=== PATIENT | female | born 1990 | race Caucasian/White ===

== ENCOUNTER 2024-05-08 18:27 | Inpatient (IN) | payer OTHER, SELFPAY ==
[2024-05-08] VITALS (30 sets, daily range): BP systolic 122–173; BP diastolic 63–93; PULSE 83–107; O2SAT 96–98; BMI 38.2
--- NOTE | 2024-05-08 19:10 | XR_ITS ---
Examination: Complete OB ultrasound greater than 14 weeks Date and time of exam: May 08, 2024 1934 hrs. Indications: Leaking amniotic fluid since last night, dilated cervix 4 cm Findings: Viable intrauterine single fetus with single amniotic sac presentation cephalic Cardiac motion 166 BPM Placenta posterior grade 2 Umbilical cord insertion seen Amniotic fluid index 3.4 cm Cervix 3.4 cm Ovaries obscured by bowel gas. Composite estimated gestational age based on BPD, head circumference, abdominal circumference, femur length is 37 weeks 5 days Estimated weight 3364 g. Survey of intracranial anatomy, spinal anatomy, abdominal anatomy, four-chamber heart performed with no abnormalities identified. Impression: Viable intrauterine gestation cephalic presentation Amniotic fluid index 3.4 cm.
[2024-05-08 19:44] LABS: ROM Kit Lot # 57805053; ROM Swab Mixed By: ANGUM; Swb Mxed in Solvent 1 min? Yes
[2024-05-08 19:45] LABS: Rupture of Fetal Membranes Positive (Negative)
[2024-05-08 19:51] LABS: Collection Type, Urine Clean Catch
[2024-05-08 19:55] LABS: Basophils # (Auto) 0.1 Thou/mm3 (0.0-0.2); Basophils % (Auto) 1 % (0-2.5); Eosinophils # (Auto) 0.1 Thou/mm3 (0.0-0.5); Eosinophils % (Auto) 1 % (0-10); Hematocrit 34.6 % (36.0-46.0); Hemoglobin 11.7 g/dL (12.0-16.0); Immature Granulocytes % (Auto) 2 % (0-0); Immature Granulocytes Auto 0.27 Thou/mm3 (0.00-0.00); Lymphocytes # (Auto) 2.5 Thou/mm3 (1.0-4.8); Lymphocytes % (Auto) 18 % (10-50); Mean Corpuscular HGB Conc 33.8 g/dl (31.0-37.0); Mean Corpuscular Volume 86 fL (80-100); Monocytes # (Auto) 1.1 Thou/mm3 (0.0-0.8); Monocytes % (Auto) 8 % (0-12); Neutrophils # (Auto) 9.9 Thou/mm3 (1.8-7.7); Neutrophils % (Auto) 71 % (37-80); Nucleated Red Blood Cell % 0 /100 WBC (0); Platelet Count 282 Thou/mm3 (140-440); RDW Standard Deviation 43.5 fL (36.4-46.3); Red Blood Count 4.03 Miln/mm3 (4.00-5.20); White Blood Count 13.9 Thou/mm3 (3.6-11.0)
[2024-05-08 20:03] LABS: Bilirubin,Urine Negative (Negative); Blood,Urine Negative (Negative); Clarity,Urine Clear (Clear/Hazy); Color,Urine Lt-Yellow (Lt Yel-Yel); Glucose, Urine Negative (Negative); Ketones,Urine Negative (Negative); Leukocyte Esterase,Urine Negative (Negative); Nitrite,Urine Negative (Negative); PH,Urine 6.5 (5.0-7.0); Protein,Urine Negative (Neg - Trace); RBC,Urine 2 /hpf (0-3); Specific Gravity,Urine 1.019 (1.001-1.035); Squamous Epithelial Cell,Urine 2 /hpf (0-5); Urobilinogen,Urine Negative mg/dL (0.0-1.0); WBC,Urine 2 /hpf (0-5)
[2024-05-08 20:55] LABS: INR 0.9 (0.9-1.3); Partial Thromboplastin Time 27.2 Seconds (22.0-36.0); Prothrombin Time 10.2 Seconds (9.0-12.2)
[2024-05-08 20:56] LABS: Fibrinogen 620 mg/dL (175-375)
--- NOTE | 2024-05-08 21:04 | ESHP_ITS ---
Documentation for date of: 05/08/24 OB Labor/Induct. HPI History of Present Illness Chief complaint: 33 y/o 38w 2d presents to L&D in early labor with SROM : 1 Para: 0 Term pregnancies: 0 pregnancies: 0 Living children: 0 History of Abortions: Spontaneous and Elective: 0 History of Vaginal deliveries: 0 History of sections: No History of : No JOSTIN: 05/20/24 Gestational Age (weeks): 38 Gestational Age (days): 2 History of present illness: 33 y/o 38w 2d presents to L&D in early labor with SROM, 3.5/90/-3 vertex maxi 2-5 minutes. Ruptured membranes, amnisure +. Pt's GBS is unknown. Pt is a drop in from [facility], pt was suppose to deliver there, but came here instead. Denies any complications in . EFW 3400g. History of Present Adequate Care: Yes Obstetrical complications: none Labs Maternal Blood Type: O Pos Labs: Negative: HIV, Chlamydia, Gonorrhea, Herpes Type 1 and Herpes Type 2 and Unknown: RPR, Hepatitis B, Rubella Titre, Group Beta Strep and Covid- 19 Review of Systems Review of Systems Systems Reviewed: All systems reviewed, normal except as documented Past Medical History Surgical History SURGICAL: Negative Section Meds Home Medications and Allergies Home Medications ?Medication ?Instructions ?Recorded ?Confirmed ?Type calcium carbonate 500 2 tab PO PRN PRN hearburn 05/08/24 05/08/24 History mg-simethicone 20 mg chewable tablet [id number]-[id number] 1 mg 2 tab PO DAILY 05/08/24 05/08/24 History tablet Allergies Allergy/AdvReac Type Severity Reaction Status Date / Time Sulfa (Sulfonamide Allergy Verified 05/08/24 18:44 Antibiotics) OB Exam Physical Exam Vital signs: Pulse BP 90 131/64 H 05/08/24 20:55 05/08/24 20:55 Constitutional Constitutional: no acute distress Routine HEENT Exam Head: Present normocephalic and atraumatic Eye: Present EOMI, PERRL and normal accommodation ENT: Present mucous membranes moist Routine Neck Exam Neck: Present supple, full ROM and trachea midline Routine Respiratory Exam Respiratory: Absent respiratory distress Routine Cardiovascular Exam Cardiovascular: Present RRR Routine Abdominal Exam Abdominal: Present soft and normoactive bowel sounds Comments: Gravid Uterus EFW 3400g Routine Exam External: Present normal urethra appearance; Absent lesions Detailed Labor and Delivery Exam Dilation (cm): 3.5 Effacement (%): 90 Cervix position: posterior station: -3 Consistency: soft Presentation: Vertex Membranes: ruptured (SROM) Amniotic fluid: clear Baseline heart rate: 130 monitor accelerations: 15x15 monitor decelerations: None [facility] variability: Moderate (11-25) Contraction frequency (min): Maxi Routine Extremities Exam Extremities: Present full ROM Routine Back/Spine/Pelvis Exam Back/Spine: Present full ROM Routine Skin Exam Skin: Present intact, dry and warm Routine Neurological Exam Neurological: Present alert, oriented X3 and CN II-XII intact Routine Psychiatric Exam Psychiatric: Present normal affect and normal thought process OB Results Labs 05/08/24 19:24 05/08/24 19:24 Labs: Short CBC 05/08/24 Range/Units 19:24 WBC 13.9 H (3.6-11.0) Thou/mm3 Hgb 11.7 L (12.0-16.0) g/dL Hct 34.6 L (36.0-46.0) % Plt Count 282 (140-440) Thou/mm3 Urine 05/08/24 Range/Units 19:24 Urine Color Lt-Yellow (Lt Yel-Yel) Urine Clarity Clear (Clear/Hazy) Urine pH 6.5 (5.0-7.0) Ur Specific [place] 1.019 (1.001-1.035) Urine Protein Negative (Neg - Trace) Urine Glucose (UA) Negative (Negative) OB Assessment & Plan Assessment and Plan (1) Normal labor: Status: Acute (2) with 38 completed weeks gestation: Status: Acute (3) GBS screening not performed: Status: Acute (4) Spontaneous rupture of amniotic membranes: Status: Acute Additional Plan Induction method: none Plan: augmentation, anticipate NVD, GBS prophylaxis tx and consult MD maravilla Additional Plan Comment: Routine Admit orders Complete OB and complete panel Consult anesthesia for an epidural
[2024-05-08 21:07] LABS: Alanine Aminotransferase 19 U/L (10-49); Albumin, Serum 4.1 gm/dL (3.5-5.0); Albumin/Globulin Ratio 1.6 (1.2-2.2); Alkaline Phosphatase 191 U/L (46-116); Anion Gap 8 (7-16); Aspartate Amino Transferase 24 U/L (0-34); BUN/Creatinine Ratio 16 Ratio (12-20); Bilirubin,Total 0.4 mg/dL (0.3-1.2); Blood Urea Nitrogen 8 mg/dL (9-23); Calcium 10.2 mg/dL (8.3-10.6); Calcium (Corrected) 10.2 mg/dL (8.5-10.1); Carbon Dioxide 22.6 mMol/L (20.0-31.0); Chloride 105 mMol/L (98-107); Creatinine (Component) 0.5 mg/dL (0.6-1.3); Globulin 2.5 gm/dL (2.3-3.5); Glucose 82 mg/dL (74-106); Osmolality,Calculated 269 (275-295); Potassium 3.8 mMol/L (3.4-5.1); Sodium 136 mMol/L (136-145); Total Protein 6.6 gm/dL (5.7-8.2); eGFR > 60 See Note
[2024-05-08 21:48] LABS: Basophils % (Auto) 0 % (0-2.5); Eosinophils # (Auto) 0.1 Thou/mm3 (0.0-0.5); Eosinophils % (Auto) 1 % (0-10); Hematocrit 35.2 % (36.0-46.0); Immature Granulocytes % (Auto) 2 % (0-0); Immature Granulocytes Auto 0.23 Thou/mm3 (0.00-0.00); Lymphocytes # (Auto) 2.2 Thou/mm3 (1.0-4.8); Lymphocytes % (Auto) 14 % (10-50); Mean Corpuscular HGB Conc 34.1 g/dl (31.0-37.0); Mean Corpuscular Hemoglobin 29.3 pg (25.0-35.0); Mean Corpuscular Volume 86 fL (80-100); Monocytes % (Auto) 7 % (0-12); Neutrophils % (Auto) 77 % (37-80); Nucleated Red Blood Cell % 0 /100 WBC (0); Platelet Count 259 Thou/mm3 (140-440); RDW Standard Deviation 43.9 fL (36.4-46.3); White Blood Count 15.6 Thou/mm3 (3.6-11.0)
[2024-05-08] MEDS: RINGERS LACTATED 1000 ML 1,000 ML 100 ML IV (21:53)
[2024-05-08] MEDS: Ampicillin Inj 2,000 MG in SODIUM CHLORIDE 0.9% (P) 100 ML 200 MG IV (22:00)
[2024-05-09] VITALS (354 sets, daily range): BP systolic 80–149; BP diastolic 50–93; PULSE 74–114; RESP 18; TEMP 36.7–37.1; O2SAT 79–100
[2024-05-09] MEDS: RINGERS LACTATED 1000 ML 1,000 ML 999 ML IV ×2 (00:29→01:11)
[2024-05-09 00:41] LABS: HIV (1&2) Antibody Rapid Non-Reactive
[2024-05-09 01:10] LABS: Uric Acid 5.1 mg/dL (3.1-7.8)
[2024-05-09 01:28] LABS: Hepatitis B Surface Antigen Non Reactive (Non React); Rubella, IgG Antibody Reactive (Immune)
[2024-05-09 01:32] LABS: Syphilis Nonreactive (Nonreactive)
[2024-05-09] MEDS: Ampicillin Inj 1,000 MG in SODIUM CHLORIDE 0.9% (P) 50 ML 50 MG IV ×4 (02:15→14:25)
[2024-05-09] MEDS: RINGERS LACTATED 1000 ML 1,000 ML 100 ML IV ×2 (02:49→08:45)
[2024-05-09] MEDS: OXYTOCIN in NS 30 units 30 UNIT/500 ML BAG IV (05:56)
--- NOTE | 2024-05-09 07:06 | PD.LDPN ---
Documentation for date of: 05/09/24 OB Labor Progress Note Pain Control Pain control: epidural Pelvic Exam Dilation (cm): 6 Effacement (%): 90 station: -2 Amniotic membrane status: Ruptured Contractions Monitor mode: External Contraction frequency: 3-6 Contraction duration: 40-90 Contraction phase: Contraction Contraction intensity: Moderate Status status: Category l Assessment and Plan Pitocin rate (mU/min): 2 Assessment: active labor Plan OB labor note: continuous present management Comments: Pt is comfortable with epidural Pitocin was just started 1 hour ago Reassuring fetus Anticipate
[2024-05-09] MEDS: MINERAL OIL 30 ML UDC TOP (17:22)
[2024-05-09] MEDS: OXYTOCIN in NS 20 units 20 UNIT/1,000 ML BAG 125 UNIT IV (17:52)
[2024-05-09] MEDS: BENZO/LANO/ALOE (Dermoplast) 60 GM CAN 1 SPRAY TOP (18:09)
--- NOTE | 2024-05-09 18:13 | OBDSUM_ITS ---
Data ([place]) Data Hx Section: No Maternal Blood Type: O Pos Rubella Titre: Positive RPR: Non-reactive Labs: Negative: RPR, Hepatitis B, HIV, Chlamydia, Gonorrhea and Group Beta Strep and Unknown: Herpes Type 1 and Herpes Type 2 : 1 Para: 0 Term: 0 : 0 Livin : 0 Delivery Data ([place]) Labor Data Stimulated/Augmented: Yes Induction: No Method: Oxytocin ROM Date: 05/08/24 ROM Time: 15:00 Rupture Type: SROM Amniotic Fluid: Clear Delivery Data EDC: 05/20/24 EDC calculated by:: LMP/early US confirmation Labor Onset Stage 1 Date: 05/08/24 Labor Onset Stage 1 Time: 15:00 Labor Onset Stage 2 Date: 05/09/24 Labor Onset Stage 2 Time: 16:33 Delivery Date: 05/09/24 Delivery Time: 17:41 Gestational age (weeks): 38 Gestational age (days): 3 Placenta Delivery Date: 05/09/24 Placenta Delivery Time: 17:48 Delivered by: Reema Wright Delivery nurse: Amy Duncan Mainframe Architect at delivery: No Support person(s) at delivery: FOB Other staff at delivery: Nursery Nurse Other staff at delivery: Isabel Luciano Delivery Method Delivery: Vaginal Delivery Type: Spontaneous Presentation: Vertex Position: OA Anesthesia Type Primary Anesthesia: Epidural Delivery Room Medications Intrapartum Medications: Antibiotics (x4) Other Intrapartum Medications: No Post Delivery Medications N/A: No Placenta Placenta Delivery: Spontaneous Placenta Cultures Obtained: No Placenta Sent for Examination: No Cord Sample: Cord Blood Obtained Episiotomy Episiotomy: None Lacerations #1: Vaginal: 1st degree Perineal repair Sutures used for repair: 3.0 Vicryl (CT) EBL Estimated blood loss (ml): 300 Umbilical Cord Umbilical Vessels: 3 Nuchal Cord: Not Applicable Body Cord: Not Applicable Additional Procedures of a viable male . Infant's anterior shoulder delivered with gentle downward traction subsequent deliver the posterior shoulder and the body without complications. Infant placed on mother's abdomen. Vigorous cry upon delivery. Cord was clamped. Cut by FOB. Cord blood obtained. Three-vessel cord noted. Placenta expelled spontaneously and intact. Patient sustained a first-degree vaginal laceration which was repaired using a 3-[address] suture. Perineum intact. Excellent hemostasis achieved after vigorous fundal massage and removal of clots from the posterior fornix. EBL 300. Sponge and needle count correct. Mother and baby stable, skin to skin and bonding in LDR. Burchard Data ([place]) Burchard Data Gender: Male Weight Grams: 3190 1 Minute Total: 9 5 Minute Total: 9
[2024-05-09] MEDS: IBUPROFEN TAB 400 MG TABLET 800 MG PO (19:02)
[2024-05-10 01:35] LABS: Basophils % (Auto) 0 % (0-2.5); Eosinophils % (Auto) 0 % (0-10); Hematocrit 30.6 % (36.0-46.0); Hemoglobin 10.4 g/dL (12.0-16.0); Immature Granulocytes % (Auto) 1 % (0-0); Immature Granulocytes Auto 0.15 Thou/mm3 (0.00-0.00); Lymphocytes # (Auto) 2.1 Thou/mm3 (1.0-4.8); Lymphocytes % (Auto) 11 % (10-50); Mean Corpuscular Hemoglobin 29.7 pg (25.0-35.0); Mean Corpuscular Volume 87 fL (80-100); Monocytes # (Auto) 1.5 Thou/mm3 (0.0-0.8); Monocytes % (Auto) 8 % (0-12); Neutrophils # (Auto) 14.5 Thou/mm3 (1.8-7.7); Neutrophils % (Auto) 80 % (37-80); Nucleated Red Blood Cell % 0 /100 WBC (0); Platelet Count 234 Thou/mm3 (140-440); RDW Standard Deviation 45.5 fL (36.4-46.3)
[2024-05-10 01:58] LABS: White Blood Count 18.3 Thou/mm3 (3.6-11.0)
[2024-05-10 04:21] VITALS: BP 122/78; PULSE 75; RESP 16; TEMP 36.3; O2SAT 96
--- NOTE | 2024-05-10 07:11 | ESDS_ITS ---
DS: Providers Provider Date of admission: 05/08/24 22:41 Primary care physician: Physician No Primary/Family Admitting Provider: Sabiha Perez MD Attending Provider on Admission: Ernst Oseguera MD Attending Provider on DC: Reema Wright CNM Discharging Provider: Reema Wright CNM Anticipated date of discharge: 05/10/24 DS: Diagnosis Discharge Diagnosis (1) Normal spontaneous vaginal delivery: Status: Acute (2) Encounter for care of lactating mother: Status: Acute (3) Spontaneous rupture of amniotic membranes: Status: Acute (4) with 38 completed weeks gestation: Status: Acute (5) Normal labor: Status: Acute Problem List Completed Was Problem List Reviewed/Reconciled?: Yes Summary/Hosp Course Brief History: 33 y/o 38w 2d presents to L&D in early labor with SROM, 3.5/90/-3 vertex maxi 2-5 minutes. Ruptured membranes, amnisure +. Pt's GBS is unknown. Pt is a drop in from [facility], pt was suppose to deliver there, but came here instead. Denies any complications in . EFW 3400g. 05/09/24: of a viable male infant. Infant's anterior shoulder delivered with gentle downward traction subsequent deliver the posterior shoulder and the body without complications. Infant placed on mother's abdomen. Vigorous cry upon delivery. Cord was clamped. Cut by FOB. Cord blood obtained. Three- vessel cord noted. Placenta expelled spontaneously and intact. Patient sustained a first-degree vaginal laceration which was repaired using a 3-[address] suture. Perineum intact. Excellent hemostasis achieved after vigorous fundal massage and removal of clots from the posterior fornix. EBL 3 00. Sponge and needle count correct. Mother and baby stable, skin to skin and bonding in LDR. 05/10/24: day 1. Patient is stable and afebrile and doing well. Denies dizziness shortness of breath. Able to ambulate and voiding with no problem. Uterus non-tender fundus firm minimal lochia. Patient is breast- feeding infant bonding well. Discharge instructions given. Patient to follow- up with her provider or she can follow-up with Reema Wright CNM in 3 weeks Peripartum Data Delivery Method: Normal Vaginal Delivery Episiotomy Description: None Laceration Description: yes and see Delivery Summary complications: none [place] 1: Gender: Male Disposition of : home Status at Discharge Cognitive/behavioral status at discharge: Alert and oriented x 3 Functional status at discharge: independent ambulation Overall status at discharge: patient is progressing back to baseline Time Spent with Patient Time attestation: Total time spent providing and/or coordinating discharge services: Time spent: Greater than 30 minutes Exam Vital Signs Temp Pulse Resp BP Pulse Ox 98.5 F 100 18 114/57 L 97 05/09/24 15:56 05/09/24 17:47 05/09/24 15:56 05/09/24 17:47 05/09/24 17:41 Constitutional Constitutional: no acute distress Routine HEENT Exam Head: Present normocephalic and atraumatic Eye: Present EOMI, PERRL and normal accommodation ENT: Present mucous membranes moist Routine Neck Exam Neck: Present supple, full ROM and trachea midline Routine Respiratory Exam Respiratory: Present chest non-tender, lungs clear, normal breath sounds and no resp distress Routine Cardiovascular Exam Cardiovascular: Present RRR Routine Abdominal Exam Abdominal: Present soft and normoactive bowel sounds; Absent tenderness or distended Comments: Uterus nontender Fundus firm Routine Exam Patient deferred: external exam Routine Extremities Exam Extremities: Present full ROM, pulses intact and normal capillary refill; Absent calf tenderness or tenderness Routine Back/Spine/Pelvis Exam Back/Spine: Present full ROM Routine Skin Exam Skin: Present intact, dry and warm Routine Neurological Exam Neurological: Present alert, oriented X3 and CN II-XII intact Routine Psychiatric Exam Psychiatric: Present normal affect and normal thought process Discharge Plan Plan Patient Disposition: HOME (Self Care) Patient condition on transfer: Stable Prescriptions/Referrals Prescriptions/Med Rec: New ibuprofen 800 mg tablet 800 mg PO Q6H MDD 4 PRN (Reason: pain) Qty: 120 0RF docusate sodium [Colace] 100 mg capsule 100 mg PO BID Qty: 60 0RF lanolin 50 % ointment 1 applic topical TID PRN (Reason: skin irritation) Qty: 15 0RF Continued mpdtmfad-swa-Lc-FA 1 mg Tablet 2 tab PO DAILY calcium carbonate-simethicone 500-20 mg Tablet,Chewable 2 tab PO PRN PRN (Reason: hearburn) Referrals: No Primary/Family,Physician [Primary Care Provider] - Patient/Caregiver Discharge Instructions Meds to Beds: No Discharge Activity: activity as tolerated Other Discharge Activity Instructions:: Follow-up with Reema Wright CNM in 3 weeks Education Materials: After a Vaginal , After Delivery Concerns Print Language: Belarusian Stand Alone Forms: Francie Award Info., Patient Portal Info Letter Discharge Order Discharge Orders: Discharge (Routine); Ordered 05/10/24 Ordered By: Reema Wright Planned Discharge Date 05/10/24
[2024-05-10 07:29] VITALS: BP 133/83; PULSE 80; RESP 17; TEMP 36.9; O2SAT 99
[2024-05-10 08:37] VITALS: TEMP 36.9
[2024-05-10] MEDS: IBUPROFEN TAB 400 MG TABLET 800 MG PO (08:37)
[2024-05-10 11:26] VITALS: BP 119/78; PULSE 77; RESP 16; O2SAT 97
[2024-05-10 16:00] VITALS: BP 136/84; PULSE 97; RESP 18; TEMP 2.6; TEMP 36.7; O2SAT 98
--- NOTE | 2024-05-10 18:05 | PC.NURSE ---
Patient discharged home with spouse and . Patient given discharge education, precautions and reasons to return to hospital. Patient instructed to follow up with GERARDO Benavidez in 1 week PP and to monitor b/ps at home. Patient denies any Preeclamptic symptoms at this time, patient educated on what symptoms to look out for. Patient verbalizes understanding, all questions answered and encouraged.
== END 2024-05-10 18:00 | disposition home or self-care (01) | DRG 807 ==
LOC: S4SX 20:20 → S4NX 22:38 → S4SX 22:40 → S4NX 05-09 19:56
PROVIDERS: Nurse Practitioner Women's Health; Admitting Provider Student in an Organized Health Care Education/Training Program; Visit Provider Obstetrics & Gynecology
DX: O70.0 First degree perineal laceration during delivery (principal); Z37.0 Single live birth; Z3A.38 38 weeks gestation of pregnancy
CPT/HCPCS: 36415; 59025; 59409; 59899; 76805; 80053; 81001; 84112; 84550; 85025; 85384; 85610; 85730; 86703; 86762; 86780; 86850; 86900; 86901; 87340; 87491; 87591; 87661; 94762; J0290; J2590; J2795; J3010; J7050; J7120; A9270

== ENCOUNTER 2024-05-16 14:14 | Outpatient (AMBR) | payer OTHER, SELFPAY ==
--- NOTE | 2024-05-16 15:14 | LACNOTE_ITS ---
Assessment LAC Breast Assessment Breast Assessment Right: Breast Assessment Comment: Breast is full, mom states more milk upon pumping from right breast than in the left breast. Alternative Milk Expression Alternative Milk Expression Alternative Method Used: Yes Method Used: Pumping Alternative Method Comment: Mom able to pump 5 oz on right breast almost every time she pumps and about 3 oz on the left breast. went over refrigeration and freezing of milk process Alternative Method Used Reason: Poor Feeding Alternative Method Produced Milk / Colostrum: Yes Production Amount: 8 Production ounces or mls: ounces Pump Used: Electric Pumping Frequency Per Day: 5 LAC Assessment Breast Feeding Assessment Date of : 05/09/24 Current Age of baby: 7 Weight: 3220.506 g Current weight of baby: 2766.913 g # of Stool voids in last 24 hrs: 3 Stool Size: Small Color of Stools: greenish brown # of Urine voids in last 24 hrs: 6 Color of Urine: clear to light yellow Breast Feeding Ability: Fair Complications: Difficult Latch Complications Comment: baby has tight lip frenulum as well as posterior tongue frenulum. referral to oral surgeon for consult [place] Activity Level: Sleepy Muscle Tone: With In Normal Limits Suck Quality: Tongue Retracts and Tongue Thrusts Effective [place] Suck: Yes [place] Swallow: Observed and Occasional Jaw: Receding [place] Lip Seal: Weak Suction, Chomping and Tight Lips Feeding Posistion: Cross Cradle Additional Latch or Posistion Assistance Needed: Minimal Pre Weight (before feeding): 3022.059 g Post Weight (post feeding): 3027.729 g % gained or lost: No Change LAC [place] Oral Assessment [place] Oral Assessment Prenulum Level: Posterior Lip: Tight Upper Lip Palate: High Dental Referral made: Yes Oral Assessment Comment: tongue cups my finger but does retract after several sucks. chin also receeds OP DC Assessment Discharge Visit Complete?: Yes LAC Assessment 2 Breast Feeding Assessment Breast Feeding Ability: Fair [place] Complications: Difficult Latch Complications Comment: First five days have been going well, last 2 days baby is fussing, arching back, clamping down on breasts during feed. Crying uncontrollable. Parents brought baby into ER, frustrated and scared that something was wrong. Baby is also very gassy, mom feels slightly colicky. Spitting up and rumbling tummy. [place] Activity Level: Sleepy Muscle Tone: With In Normal Limits Suck Quality: Tongue Retracts and Tongue Thrusts Effective Suck: Yes Swallow: Observed and Occasional Jaw: Receding Lip Seal: Weak Suction, Chomping and Tight Lips Feeding Posistion: Cross Cradle Additional Latch or Posistion Assistance Needed: Minimal Breast Feeding Comment: Used a nipple shield to assist baby in keeping latch. mom states that he was alwasys too tired to maintain ogod latch for a good feed. always seems to come off hungry. mom has used bottles to help supplement baby with her own milk Pre Weight (before feeding): 3022.059 g Post Weight (post feeding): 3027.729 g % gained or lost: No Change gained or lost: 6
--- NOTE | 2024-05-17 15:08 | LAC.VISIT ---
Assessment Alternative Milk Expression Alternative Milk Expression Alternative Method Used: Yes Method Used: Pumping Alternative Method Used Reason: Sleepy Baby and Poor Feeding Alternative Method Produced Milk / Colostrum: Yes Production Amount: 8 Production ounces or mls: ounces Pump Used: Electric Pumping Frequency Per Day: 5 Pumping Frequency Comment: mom stated she will pump after feedings since baby does not empty breast or do well at the breast. feeds are long and there is not always a good transfer of milk. LAC Assessment Breast Feeding Assessment Date of : 05/09/24 Current Age of baby: 8 (days) Weight: 3220.506 g Current weight of baby: 2771.449 g # of Stool voids in last 24 hrs: 3 Stool Size: Small Color of Stools: parents state that stools are like a smear, had had one really big good stool today the others have been smaller [place] # of Urine voids in last 24 hrs: 5 Color of Urine: clear to light yellow Breast Feeding Ability: Poor Complications: Difficult Latch Complications Comment: tight lip frenulum and lip frenulum, dimples in cheeks when he sucks as well. used nipple shield to help in latch so baby not working so hard to stay latched. his breathing is also labored. [place] Activity Level: Sleepy [place] Muscle Tone: Floppy Suck Quality: Tongue Retracts and Tongue Thrusts Effective [place] Suck: No [place] Swallow: Audible and Observed Jaw: Receding Lip Seal: Poor, Weak Suction and Tight Lips Feeding Posistion: Football Additional Latch or Posistion Assistance Needed: Moderate Breast Feeding Comment: baby making a lot of noise while at the breast, chest does have slight retraction when feeding. also sounds like baby has difficulty breathing when at the breast. mom states that with a bottle baby still has some noises going on but breathing is better. but afterwards baby sounds like he is hyperventilating. referred to veterinarian epidemiologist to follow up with this issue. Breast Feeding Comment: used SNS to assist baby with feeding at the breast, used nipple shield size 24 to help baby latch and not work so hard at the breast. baby tolerated well, took 8 mls in 20 minutes. Pre Weight (before feeding): 2766.913 g Post Weight (post feeding): 2771.449 g % gained or lost: No Change LAC Intervention Interventions Tools: Nipple Shield Other Tools: SNS Nipple Shield Size: Medium Techniques Discussed: Latch, Position and Pumping Discharge Other Referral Made: Yes Out Patient [employer]des Supervisor: Dr. Marietta PATRICIO Oral Assessment Oral Assessment Prenulum Level: Posterior Lip: Tight Upper Lip Palate: High Dental Referral made: Yes Oral Assessment Comment: [place] OP DC Assessment Discharge Other Referral Made: Yes Out Patient [employer] Supervisor: Dr. Mcmanus Visit Complete?: Yes
== END 2024-06-14 23:59 | disposition home or self-care (01) ==
LOC: HODLAC 14:14
DX: Z39.1 Encounter for care and examination of lactating mother (principal)